=== PATIENT | female | born 1950 | race Caucasian/White ===

== ENCOUNTER 2018-04-01 08:18 | Day surgery (SDC) | payer MEDICARE, BC ==
[~2018-04-01] VITALS: Ht 171.4 cm; Wt 90.5 kg
[2018-04-01 09:00] VITALS: BP 157/81
[2018-04-01] MEDS ORDERED: fentaNYL/PF 50MCG/1 ML 2ML syringe ONE (09:16)
[2018-04-01] MEDS ORDERED: MIDAZolam 5mg/5ml vial ONE (09:16)
[2018-04-01] MEDS ORDERED: VALA500T PO (09:20)
[2018-04-01] MEDS ORDERED: SPIR50TA5 PO (09:20)
[2018-04-01 10:29] VITALS: BP 118/77
[2018-04-01 10:39] VITALS: BP 137/67
[2018-04-01 10:49] VITALS: BP 141/52
== END 2018-04-01 11:00 | disposition home or self-care (01) ==
LOC: GI LAB 08:18
PROVIDERS: ATTEND Specialist
DX: Z12.11 Encounter for screening for malignant neoplasm of colon (principal); K63.5 Polyp of colon; K57.30 Diverticulosis of large intestine without perforation or abscess without bleeding; K62.1 Rectal polyp; K64.8 Other hemorrhoids; Z90.710 Acquired absence of both cervix and uterus
CPT/HCPCS: 45380; G0500; J2250; J3010; J7030; A4620